=== PATIENT | female | born 1990 | race African-American/Black ===

== ENCOUNTER → 2017-06-18 09:04 | Emergency (ER) | payer SELFPAY ==
[~2017-06-18 09:04] MED LIST: Metoclopramide IV* 5 MG/ML 2 ML VIAL IV ONE; Morphine INJ* 2 MG/ML 1 ML CARPUJECT IV ONE; Morphine VIAL* 4 MG/ML VIAL (1 ml vial) IV ONE; Ondansetron INJ* 2 MG/ML VIAL IV ONE; Ondansetron INJ* 2 MG/ML VIAL ONE; Ondansetron ODT TAB* 4 MG PO ONE; oxyCODONE/Acetamin 5/325 MG* TAB PO ONE
[2017-06-18] MEDS: NS 0.9% 1000 ML* 2,000 ML IV ONE (10:03)
[2017-06-18 10:05] LABS: Hematocrit 43 % (35-47); Hemoglobin 14.3 g/dl (12.0-16.0); Mean Corpuscular HGB Conc 33 g/dl (31-36); Mean Corpuscular Hemoglobin 27 pg (27-31); Mean Corpuscular Volume 81 fL (80-97); Mean Platelet Volume 10.2 um3 (7.4-10.4); Platelet Count 270 10^3/ul (150-450); Red Blood Count 5.35 10^6/ul (4.0-5.4); Red Cell Distribution Width 13 % (10.5-15); White Blood Count 6.3 10^3/ul (3.5-10.8)
[2017-06-18 10:08] LABS: INR 0.94 (0.77-1.02)
[2017-06-18 10:16] LABS: EGFR Non-African American 94.2 (>60)
[2017-06-18 10:38] LABS: ABS Basophils 0 10^3/ul (0-0.2); ABS Eosinophils 0.1 10^3/ul (0-0.6); ABS Lymphocytes 1.5 10^3/ul (1.0-4.8); ABS Monocytes 0.5 10^3/ul (0-0.8); ABS Neutrophils 4.2 10^3/ul (1.5-7.7); ABS Nucleated RBC 0 10^3/ul; Eosinophil % 1.7 % (0-6); Lymphocyte % 23.4 % (25-47); Nucleated Red Blood Cells % 0.1
[2017-06-18 11:39] VITALS: BP 138/93
[2017-06-18 12:13] LABS: Urine Appearance Clear; Urine Blood 3+ (Negative); Urine Color Yellow; Urine Ketones Negative (Negative); Urine Protein Negative (Negative); Urine Urobilinogen Negative (Negative)
--- NOTE | 2017-06-18 12:48 | ED ---
Sarah Lucas Emily, scribed for Chari Adame MD on 06/18/17 at 1020 . Abdominal Pain/Female - HPI Summary HPI Summary: This patient is a 26 year old F presenting to [facility] with a chief complaint of nausea and vomiting that began at 2300 yesterday. Pt reports eating pizza that had been sitting out for a while at about 2100 yesterday. The patient rates the pain 8/10 in severity. Symptoms aggravated by nothing. Patient reports chills and epigastric abd pain. Patient denies diarrhea. Symptoms aggravated by nothing. Pt reports taking garlic oil pills, advil liquid gels, and castor oil with no reduction in abd pain or vomiting. - History of Current Complaint Chief Complaint: EDNauseaVomitDiarrh Stated Complaint: N/V Time Seen by Provider: 06/18/17 10:10 Hx Obtained From: Patient Onset/Duration: Sudden Onset, Lasting Hours, Still Present Timing: Constant Severity Initially: Mild Severity Currently: Mild Pain Intensity: 8 Pain Scale Used: 0-10 Numeric Location: Epigastric Aggravating Factor(s): Nothing Alleviating Factor(s): Nothing Associated Signs and Symptoms: Positive: Nausea, Vomiting. Negative: Diarrhea Allergies/Adverse Reactions: Allergies Allergy/AdvReac Type Severity Reaction Status Date / Time No Known Allergies Allergy Verified 06/18/17 09:13 Home Medications: Home Medications Ibuprofen [Advil Liqui-Gels] 200 - 400 mg PO Q6H PRN 06/18/17 [History Confirmed 06/18/17] PMH/Surg Hx/FS Hx/Imm Hx Previously Healthy: Yes Opthamlomology History: Denies: Hx Legally Blind EENT History: Denies: Hx Deafness Infectious Disease History: No Infectious Disease History: Denies: Traveled Outside the [place] in Last 30 Days - Family History Known Family History: Negative: Cardiac Disease, Diabetes - Social History Occupation: Employed Full-time Lives: Alone Alcohol Use: None Substance Use Type: Reports: None Smoking Status (MU): Current Some Day Smoker Review of Systems Positive: Chills Positive: Abdominal Pain, Vomiting, Nausea. Negative: Diarrhea All Other Systems Reviewed And Are Negative: Yes Physical Exam - Summary Physical Exam Summary: Appearance: Well-appearing, Well-nourished. Pt is retching actively at bedside with small amounts of yellow-green vomitus. Skin: Warm Eyes: Normal ENT: Normal Neck: Supple, nontender Respiratory: Clear to auscultation Cardiovascular: Regular rate, regular rhythm. Normal S1, S2. Abdomen: Soft, Tender to palpitation. Upper abd tenderness, moderate. Musculoskeletal: Normal, Strength/ROM Intact Neurological: Normal, A&Ox3 Psychiatric: Normal General: No acute distress Triage Information Reviewed: Yes Vital Signs On Initial Exam: Initial Vitals Temp Pulse Resp BP Pulse Ox 96.5 F 98 18 154/100 97 06/18/17 09:09 06/18/17 09:09 06/18/17 09:09 06/18/17 09:09 06/18/17 09:09 Vital Signs Reviewed: Yes Diagnostics - Vital Signs Vital Signs Temp Pulse Resp BP Pulse Ox 06/18/17 10:05 99 139/94 99 06/18/17 10:00 74 96 06/18/17 09:28 90 100 06/18/17 09:09 96.5 F 98 18 154/100 97 - Laboratory Lab Results: Lab Results 06/18/17 06/18/17 06/18/17 Range/Units 09:50 09:50 09:50 WBC 6.3 (3.5-10.8) 10^3/ul RBC 5.35 (4.0-5.4) 10^6/ul Hgb 14.3 (12.0-16.0) g/dl Hct 43 (35-47) % MCV 81 (80-97) fL MCH 27 (27-31) pg MCHC 33 (31-36) g/dl RDW 13 (10.5-15) % Plt Count 270 (150-450) 10^3/ul MPV 10.2 (7.4-10.4) um3 Neut % (Auto) Pending Lymph % (Auto) Pending Phelps % (Auto) Pending Eos % (Auto) Pending Baso % (Auto) Pending Absolute Neuts (auto) Pending Absolute Lymphs (auto) Pending Absolute Monos (auto) Pending Absolute Eos (auto) Pending Absolute Basos (auto) Pending Absolute Nucleated RBC Pending Nucleated RBC % Pending INR (Anticoag Therapy) 0.94 (0.77-1.02) APTT 31.1 (26.0-36.3) seconds Sodium 135 L (139-145) mmol/L Potassium 4.2 (3.5-5.0) mmol/L Chloride 102 (101-111) mmol/L Carbon Dioxide 25 (22-32) mmol/L Anion Gap 8 (2-11) mmol/L BUN 9 (6-24) mg/dL Creatinine 0.75 (0.51-0.95) mg/dL Est GFR ( Amer) 121.1 (>60) Est GFR (Non-Af Amer) 94.2 (>60) BUN/Creatinine Ratio 12.0 (8-20) Glucose 172 H (70-100) mg/dL Calcium 9.4 (8.6-10.3) mg/dL Total Bilirubin 0.50 (0.2-1.0) mg/dL AST 32 (13-39) U/L ALT 47 (7-52) U/L Alkaline Phosphatase 68 (34-104) U/L C-Reactive Protein 10.39 H (< 5.00) mg/L Total Protein 7.9 (6.4-8.9) g/dL Albumin 4.4 (3.2-5.2) g/dL Globulin 3.5 (2-4) g/dL Albumin/Globulin Ratio 1.3 (1-3) Beta HCG, Quant Pending Acetaminophen Pending Result Diagrams: 06/18/17 09:50 06/18/17 09:50 Lab Statement: Any lab studies that have been ordered have been reviewed, and results considered in the medical decision making process. Re-Evaluation - Re-Evaluation First Eval Re-Evaluation Time: 12:33 Change: Unchanged Comment: Discussed results and plan of care with pt Abdominal Pain Fem Course/Dx - Course Course Of Treatment: LABS unremarkble, abd pain and nausea improved with IVF, Zofran and Reglan - Diagnoses Provider Diagnoses: Food aversion, Food contamination Discharge - Sign-Out/Discharge Documenting (check all that apply): Discharge - Discharge Plan Condition: Stable Disposition: HOME Prescriptions: Ondansetron TAB* [Zofran 4 MG Tab*] 4 mg PO Q6H PRN 5 Days #20 tab PRN Reason: Nausea oxyCODONE/Acetamin 5/325 MG* [Percocet 5/325 TAB*] 1 tab PO Q6H PRN 1 Days #4 tab MDD 4 PRN Reason: Pain Patient Education Materials: Food Poisoning (ED), Gastroenteritis (ED) Referrals: No Primary Care Phys,NOPCP [Primary Care Provider] - - Billing Disposition and Condition Condition: STABLE Disposition: HOME The documentation as recorded by the Sarah almanzar Emily accurately reflects the service I personally performed and the decisions made by Deep davis Euni, MD.
== END | disposition home or self-care (01) ==
LOC: ED 09:04
DX: A05.9 Bacterial foodborne intoxication, unspecified (principal); F17.200 Nicotine dependence, unspecified, uncomplicated
CPT/HCPCS: 36415; 80053; 80329; 81003; 81015; 83605; 84702; 85025; 85610; 85730; 86140; 96360; 96374; 99283; A9270-GY; G0480; J2270; J2405; J2765

== ENCOUNTER 2017-06-20 17:00 | Observation (INO) | payer OTHER ==
[2017-06-20 19:21] LABS: ABS Basophils 0.1 10^3/ul (0-0.2); ABS Eosinophils 0.2 10^3/ul (0-0.6); ABS Lymphocytes 2.3 10^3/ul (1.0-4.8); ABS Monocytes 1.2 10^3/ul (0-0.8); ABS Neutrophils 8.2 10^3/ul (1.5-7.7); ABS Nucleated RBC 0 10^3/ul; Hematocrit 43 % (35-47); Hemoglobin 14.3 g/dl (12.0-16.0); Lymphocyte % 19.2 % (25-47); Mean Corpuscular HGB Conc 34 g/dl (31-36); Mean Corpuscular Hemoglobin 27 pg (27-31); Mean Corpuscular Volume 81 fL (80-97); Mean Platelet Volume 9.3 um3 (7.4-10.4); Nucleated Red Blood Cells % 0; Platelet Count 316 10^3/ul (150-450); Red Blood Count 5.29 10^6/ul (4.0-5.4); Red Cell Distribution Width 13 % (10.5-15)
[2017-06-20 19:37] LABS: EGFR Non-African American 78.3 (>60)
[2017-06-20 20:39] LABS: Urine Appearance Clear; Urine Blood 1+ (Negative); Urine Color Yellow; Urine Ketones Negative (Negative); Urine Protein Negative (Negative); Urine Specific Gravity 1.014 (1.010-1.030); Urine Urobilinogen Negative (Negative)
[2017-06-20] MEDS ORDERED: NS 0.9% 1000 ML* 1,000 ML IV ONE (21:36)
--- NOTE | 2017-06-20 22:07 | RAD ---
INDICATION: Right upper quadrant pain. COMPARISON: There are no prior studies available for comparison. TECHNIQUE: Multiple real-time images of the right upper quadrant were obtained. FINDINGS: There are multiple gallstones present. The gallbladder wall is diffusely thickened measuring up to 0.6 cm in thickness. There was a positive sonographic Oliveira sign present. No intra or extrahepatic ductal distention is present. The common bile duct measured 0.4 cm in diameter. The liver is mildly enlarged, heterogeneous and increased in echogenicity most consistent with fatty infiltration. In addition there is a focal hypoechoic area measuring 3.6 x 3.4 x 7.7 cm and the left hepatic lobe possibly representing a focal area sparing although a mass cannot be excluded. The pancreas is partially obscured by overlying bowel gas. The right kidney is normal in size without evidence for hydronephrosis. IMPRESSION: 1. CHOLELITHIASIS, IN ADDITION, THERE IS GALLBLADDER WALL THICKENING AND A POSITIVE SONOGRAPHIC OLIVEIRA SIGN SUGGESTIVE OF ACUTE CHOLECYSTITIS. 2. RELATIVELY LARGE HYPOECHOIC AREA IN THE LEFT HEPATIC LOBE POSSIBLY REPRESENTING FOCAL SPARING ALTHOUGH A MASS CANNOT BE EXCLUDED. RECOMMEND AN OUTPATIENT MRI OF THE LIVER WITHOUT AND WITH CONTRAST FOR FURTHER EVALUATION. 3. MILD HEPATOMEGALY AND HEPATIC STEATOSIS.
--- NOTE | 2017-06-20 22:19 | ED ---
GI/ HPI - HPI Summary HPI Summary: 26-year-old female presents with epigastric pain for the past 4 days. She states she was seen here 2 days ago was diagnosed with food poisoning. She states she has been taking nausea medication and has been able to tolerate crackers. She states the past 2 days she has been developing epigastric pain that has gotten worse. She states that the pain of radiates to her chest. She denies any abnormal vaginal discharge. she denies any pain with urination. She admits to diarrhea that started today. She denies any blood in her stool. She denies any recent antibiotic usage. She has never had this pain before. She denies any previous belly surgeries. She states she tolerate crackers today without pain. - History of Current Complaint Chief Complaint: EDAbdPain Time Seen by Provider: 06/20/17 20:15 Stated Complaint: ABD PAIN Pain Intensity: 8 - Allergy/Home Medications Allergies/Adverse Reactions: Allergies Allergy/AdvReac Type Severity Reaction Status Date / Time No Known Allergies Allergy Verified 06/18/17 09:13 Home Medications: Home Medications Garlic [Garlic Oil 1000] 2 mg PO DAILY PRN 06/20/17 [History Confirmed 06/20/17] L.acidoph,Paracasei, B.lactis [Probiotic] 1 each PO WEEKLY 06/20/17 [History Confirmed 06/20/17] PMH/Surg Hx/FS Hx/Imm Hx Endocrine/Hematology History: Denies: Hx Anticoagulant Therapy Cardiovascular History: Denies: Hx Hypertension Sensory History: Denies: Hx Legally Blind, Hx Deafness Opthamlomology History: Denies: Hx Legally Blind Infectious Disease History: No Infectious Disease History: Denies: Traveled Outside the [place] in Last 30 Days - Family History Known Family History: Negative: Cardiac Disease, Diabetes - Social History Alcohol Use: None Substance Use Type: Reports: None Smoking Status (MU): Current Some Day Smoker Review of Systems Negative: Fever Negative: Shortness Of Breath, Cough Positive: Abdominal Pain. Negative: Vomiting, Diarrhea, Nausea All Other Systems Reviewed And Are Negative: Yes Physical Exam Triage Information Reviewed: Yes Vital Signs On Initial Exam: Initial Vitals Temp Pulse Resp BP Pulse Ox 98.3 F 111 20 153/97 98 06/20/17 17:04 06/20/17 17:04 06/20/17 17:04 06/20/17 17:04 06/20/17 17:04 Vital Signs Reviewed: Yes Appearance: Positive: Well-Appearing Skin: Positive: Warm, Dry Head/Face: Positive: Normal Head/Face Inspection Eyes: Positive: Normal, Conjunctiva Clear Respiratory/Lung Sounds: Positive: Clear to Auscultation, Breath Sounds Present Cardiovascular: Positive: Normal, RRR Abdomen Description: Positive: Soft, Other: - tenderness in RUQ, pos augustine sign Bowel Sounds: Positive: Present Musculoskeletal: Positive: Normal Neurological: Positive: Normal Psychiatric: Positive: Normal Diagnostics - Vital Signs Vital Signs Temp Pulse Resp BP Pulse Ox 06/20/17 22:00 90 112/71 99 06/20/17 21:30 89 113/84 99 06/20/17 21:00 97 112/68 97 06/20/17 20:30 102 124/56 97 06/20/17 20:26 67 89 06/20/17 20:24 131/63 06/20/17 19:45 99.7 F 97 16 134/82 100 06/20/17 18:09 97.9 F 109 18 147/98 100 06/20/17 17:04 98.3 F 111 20 153/97 98 - Laboratory Lab Results: Lab Results 06/20/17 06/20/17 06/20/17 Range/Units 19:10 19:10 20:21 WBC 12.0 H (3.5-10.8) 10^3/ul RBC 5.29 (4.0-5.4) 10^6/ul Hgb 14.3 (12.0-16.0) g/dl Hct 43 (35-47) % MCV 81 (80-97) fL MCH 27 (27-31) pg MCHC 34 (31-36) g/dl RDW 13 (10.5-15) % Plt Count 316 (150-450) 10^3/ul MPV 9.3 (7.4-10.4) um3 Neut % (Auto) 68.4 (38-83) % Lymph % (Auto) 19.2 L (25-47) % [place] % (Auto) 9.6 H (0-7) % Eos % (Auto) 2.0 (0-6) % Baso % (Auto) 0.8 (0-2) % Absolute Neuts (auto) 8.2 H (1.5-7.7) 10^3/ul Absolute Lymphs (auto) 2.3 (1.0-4.8) 10^3/ul Absolute Monos (auto) 1.2 H (0-0.8) 10^3/ul Absolute Eos (auto) 0.2 (0-0.6) 10^3/ul Absolute Basos (auto) 0.1 (0-0.2) 10^3/ul Absolute Nucleated RBC 0 10^3/ul Nucleated RBC % 0 Sodium 138 L (139-145) mmol/L Potassium 3.9 (3.5-5.0) mmol/L Chloride 100 L (101-111) mmol/L Carbon Dioxide 30 (22-32) mmol/L Anion Gap 8 (2-11) mmol/L BUN 7 (6-24) mg/dL Creatinine 0.88 (0.51-0.95) mg/dL Est GFR ( Amer) 100.7 (>60) Est GFR (Non-Af Amer) 78.3 (>60) BUN/Creatinine Ratio 8.0 (8-20) Glucose 97 (70-100) mg/dL Calcium 9.6 (8.6-10.3) mg/dL Total Bilirubin 0.70 (0.2-1.0) mg/dL AST 17 (13-39) U/L ALT 27 (7-52) U/L Alkaline Phosphatase 75 (34-104) U/L C-Reactive Protein 101.30 H (< 5.00) mg/L Total Protein 8.2 (6.4-8.9) g/dL Albumin 4.3 (3.2-5.2) g/dL Globulin 3.9 (2-4) g/dL Albumin/Globulin Ratio 1.1 (1-3) Lipase 20 (11.0-82.0) U/L Beta HCG, Quant < 0.60 mIU/mL Urine Color Yellow Urine Appearance Clear Urine pH 6.0 (5-9) Ur Specific Capulin 1.014 (1.010-1.030) Urine Protein Negative (Negative) Urine Ketones Negative (Negative) Urine Blood 1+ A (Negative) Urine Nitrate Negative (Negative) Urine Bilirubin Negative (Negative) Urine Urobilinogen Negative (Negative) Ur Leukocyte Esterase Negative (Negative) Urine WBC (Auto) 1+(6-10/hpf) A (Absent) Urine RBC (Auto) Trace(0-2/hpf) (Absent) Ur Squamous Epith Cells Present A (Absent) Urine Bacteria Absent (Absent) Urine Glucose Negative (Negative) Result Diagrams: 06/20/17 19:10 06/20/17 19:10 Lab Statement: Any lab studies that have been ordered have been reviewed, and results considered in the medical decision making process. - Ultrasound No standard instances Ultrasound Interpretation: Positive (See Comments) - IMPRESSION: 1. CHOLELITHIASIS, IN ADDITION, THERE IS GALLBLADDER WALL THICKENING AND A POSITIVE SONOGRAPHIC AUGUSTINE SIGN SUGGESTIVE OF ACUTE CHOLECYSTITIS. 2. RELATIVELY LARGE HYPOECHOIC AREA IN THE LEFT HEPATIC LOBE POSSIBLY REPRESENTING FOCAL SPARING ALTHOUGH A MASS CANNOT BE EXCLUDED. RECOMMEND AN OUTPATIENT MRI OF THE LIVER WITHOUT AND WITH CONTRAST FOR FURTHER EVALUATION. 3. MILD HEPATOMEGALY AND HEPATIC STEATOSIS. Ultrasound Interpretation Completed By: Tremaine RICH Course/Dx - Course Course Of Treatment: 26-year-old female presents with epigastric pain for the past 4 days. She states she was seen here 2 days ago was diagnosed with food poisoning. She states she has been taking nausea medication and has been able to tolerate crackers. She states the past 2 days she has been developing epigastric pain that has gotten worse. She states that the pain of radiates to her chest. She denies any abnormal vaginal discharge. she denies any pain with urination. She admits to diarrhea that started today. She denies any blood in her stool. She denies any recent antibiotic usage. She has never had this pain before. She denies any previous belly surgeries. She states she tolerate crackers today without pain. on exam tenderness RUQ. pos augustine. u/s shows cholelithasis with gallbladder thickening. labs wbc elevated and crp elevated. discussed with dr sanchez who will admit. - Diagnoses Differential Diagnoses - Female: Gall Bladder Disease, Gastroenteritis (Viral), Gastroenteritis (Bacterial), Urinary Tract Infection Provider Diagnoses: Cholecystitis Discharge - Sign-Out/Discharge Documenting (check all that apply): Discharge - Discharge Plan Condition: Good Disposition: ADMITTED TO [facility] Referrals: No Primary Care Phys,NOPCP [Primary Care Provider] - - Billing Disposition and Condition Condition: GOOD Disposition: [facility] [place]
[2017-06-20] MEDS ORDERED: Ondansetron INJ* 2 MG/ML VIAL IV PRN (22:29)
[2017-06-20] MEDS ORDERED: Acetaminophen TAB* 325 MG PO PRN (22:29)
[2017-06-20] MEDS ORDERED: Morphine INJ* 2 MG/ML 1 ML CARPUJECT IV PRN (22:29)
[2017-06-20] MEDS ORDERED: Piperacillin/Tazobac ADVAN(*) 3.375 GM in NS 0.9% 100 ML* 100 ML IVPB ONE (22:32)
[2017-06-20] MEDS ORDERED: Zosyn per Pharmacy* NOTE FOLLOW UP SCH (23:00)
[2017-06-20] MEDS: NS 0.9% 1000 ML* 1,000 ML IV SCH (23:45)
--- NOTE | 2017-06-21 01:41 | HP ---
CC: [facility] * HISTORY AND PHYSICAL: DATE OF ADMISSION: 06/20/17 CHIEF COMPLAINT: Epigastric and right upper quadrant abdominal pain with cholelithiasis. HISTORY OF PRESENT ILLNESS: Ms. Denae Young is a very pleasant 26-year- old [employer] graduate who presented to the emergency room with complaints of epigastric and right upper quadrant abdominal pain. She states this started on Tuesday. She was seen here in the emergency room on that day and was diagnosed with food poisoning and improved over the next 12 hours. However, the rest of the weekend her pain became worse. She had some nausea without fevers, shakes or chills and when her pain started radiating to the chest, she presented to the emergency room this evening. She has been able to tolerate crackers and dl mick. She has had no lower abdominal discomfort. There has been no diarrhea or change in her bowel habits. When in the emergency room, she was noted to be afebrile. Laboratory workup included white blood cell count of 12,000. C-reactive protein was 101. Beta HCG was negative. Liver transaminases, total bilirubin, alkaline phosphatase were normal. Ultrasound of her gallbladder was performed. This did show cholelithiasis with gallbladder wall thickening up to 0.6 cm in thickness and a sonographic Oliveira sign with all the findings suggestive of acute cholecystitis. Surgical consultation was obtained. PAST MEDICAL HISTORY: Unremarkable. PAST SURGICAL HISTORY: None. ALLERGIES: She has no known drug allergies. 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 She drinks alcohol on a rare social basis. She will occasionally smoke cigarettes, but is not a regular smoker. REVIEW OF SYSTEMS: Otherwise unremarkable. PHYSICAL EXAMINATION GENERAL: She is an overweight female who is very pleasant, awake and alert, appears to be in no apparent distress. VITAL SIGNS: Temperature 98.6, pulse 89, blood pressure 128/96. HEENT: Sclerae anicteric. Oral mucosa is slightly dry. LUNGS: Clear to auscultation with normal respiratory effort. HEART: Regular rate and rhythm without murmurs, rubs or gallops. ABDOMEN: Soft and obese. There are no prior surgical incisions or hernias. She has tenderness in the epigastric and right upper quadrant with some voluntary guarding. PSYCHIATRIC: She is awake, alert and oriented x3. She has normal judgment and insight. IMPRESSION: Acute calculus cholecystitis. I discussed the results of the ultrasound in her clinical scenario and I recommended that she would be admitted tonight to start IV fluids as well as IV antibiotics in treatment of her acute calculus cholecystitis. I will further recommend a laparoscopic cholecystectomy which we will schedule for tomorrow, if the operating room schedule permits. We discussed management with IV antibiotics in an attempt to postpone cholecystectomy; however, she does not want to proceed in this direction and would like to proceed with surgery. For now, she will be admitted to the regular floor. We will start her on IV Zosyn along with normal saline, keep her n.p.o. and tentatively plan surgery tomorrow. I discussed all of this with the patient and answered her questions and she understands the treatment plan. [id number]/[facility] #: [id number] VINOD
[2017-06-21] MEDS: Piperacillin/Tazobactam 13.5 GM IV 24 hour continuous infusion IVPB SCH ×2 (02:15)
[2017-06-21] MEDS ORDERED: Morphine VIAL* 4 MG/ML VIAL (1 ml vial) IV PRN (06:13)
[2017-06-21] MEDS: NS 0.9% 1000 ML* 1,000 ML IV SCH ×2 (08:00→23:47)
[2017-06-21] MEDS ORDERED: Dexamethasone IV* 4 MG/ML 1 ML (4 MG) ONE (15:56)
[2017-06-21] MEDS ORDERED: fentaNYL* 50 MCG/ML 2 ML VIAL (100 MCG VIAL) ONE ×3 (15:56→17:55)
[2017-06-21] MEDS ORDERED: Ondansetron INJ* 2 MG/ML VIAL ONE (15:56)
[2017-06-21] MEDS ORDERED: Propofol* 10 MG/ML 20 ML BTL IV PUSH ONE (15:56)
[2017-06-21] MEDS ORDERED: Lidocaine 2% PF * 5 ML VIAL ONE (15:57)
[2017-06-21] MEDS ORDERED: Atracurium* 10 MG/ML 10 ML VIAL ONE (15:57)
[2017-06-21] MEDS ORDERED: Succinylcholine* 20 MG/ML 10 ML VIAL ONE (16:17)
[2017-06-21] MEDS ORDERED: HYDROmorphone INJ* 1 MG/ML CARPUJECT SYRINGE IV PRN (16:40)
[2017-06-21] MEDS ORDERED: Ketorolac INJ* 30 MG/ML 1 ML VIAL IV PRN (16:40)
[2017-06-21] MEDS ORDERED: DiMENhydriNATE IV* 50 MG/ML VIAL IV PUSH PRN (16:40)
[2017-06-21] MEDS ORDERED: Naloxone* 0.4 MG/ML 1 ML VIAL IV PRN (16:40)
[2017-06-21] MEDS ORDERED: Labetalol IV* 5 MG/ML 20 ML VIAL ONE (16:47)
[2017-06-21] MEDS ORDERED: oxyCODONE/Acetamin 5/325 MG* TAB PO PRN (17:45)
[2017-06-21] MEDS ORDERED: Ibuprofen TAB* 600 MG PO PRN (17:47)
[2017-06-21] MEDS ORDERED: HYDROmorphone INJ* 2 MG/ML CARPUJECT SYRINGE ONE (17:55)
[2017-06-21] MEDS: fentaNYL* 50 MCG/ML 2 ML VIAL (100 MCG VIAL) IV PRN ×2 (17:57→18:06)
[2017-06-21] MEDS ORDERED: Ketorolac INJ* 30 MG/ML 1 ML VIAL ONE (18:49)
--- NOTE | 2017-06-22 02:01 | OP ---
DATE OF OPERATION: 06/21/17 - ROOM #331 DATE OF : 89 SURGEON: Alvaro Skelton MD. CRYPTOGRAPHER: Kyleigh Pascal NP ANESTHESIOLOGIST: Dr. Magana ANESTHESIA: General endotracheal. PRE-OP DIAGNOSIS: Acute cholelithiasis. POST-OP DIAGNOSIS: Acute cholelithiasis. OPERATIVE PROCEDURE: Laparoscopic cholecystectomy. ESTIMATED BLOOD LOSS: Less than 50 mL. IV FLUIDS: Crystalloid. SPECIMEN: Gallbladder. DRAINS: None. COMPLICATIONS: None. COUNTS: Instrument, needle, and sponge counts were correct. DESCRIPTION OF PROCEDURE: The patient was brought to the operating room and placed on the table supine. Sequential compression devices were placed on both lower extremities and general anesthesia was administered. The abdomen was prepped and draped in the usual sterile fashion. Time-out was performed. Local anesthetic was infiltrated into the skin and soft tissue prior to making each incision. Entry into the abdomen was through a supraumbilical right upper quadrant incision accommodating a 5-mm optical trocar and after access the peritoneal cavity, carbon dioxide was insufflated to pressure of 15 mmHg. Under direct visualization, a 12-mm trocar was placed in the subxiphoid position and two 5 mm trocars were placed in the right upper quadrant. The gallbladder was acutely inflamed, distended with findings consistent with acute cholecystitis. The liver was large. In order to grasp the gallbladder, we decompressed it first. This was accomplished by entering the gallbladder with cautery and then using the endoscopic suction to aspirate the gallbladder and then the cholecystotomy site was grasped with the lateral grasper and this was used to retract the fundus cephalad. Subsequently, there were noted to be numerous adhesions of omentum to the infundibulum of the gallbladder and to the liver. These were taken down using a combination of blunt dissection and cautery. After the wall of the gallbladder was identified, the peritoneum investing the infundibulum was incised with cautery and the area of the triangle of Calot was identified and then blunt dissection was used to dissect out the cystic duct and cystic artery. The artery was avulsed during the dissection but did not appear to bleed, but this was subsequently clipped. The cystic duct was clipped and divided and then further dissection revealed what was thought to possibly be a posterior branch of the cystic artery, which was cut, clipped and divided as well. Cautery was used to dissect the gallbladder from the attachments to the liver staying in the avascular plane and once the gallbladder was free, this was placed into endoscopic retrieval bag. This was retrieved through the subxiphoid port site. A thorough lavage of the right upper quadrant was performed and hemostasis was assured and the clips were noted to be intact and then the ports were removed under direct visualization and carbon dioxide was released. The subxiphoid site was closed with 0 Polysorb in a simple fashion to approximate the fascia and then the skin incisions were closed with 4-0 Monocryl in subcuticular fashion. Steri-Strips were applied. The patient was extubated uneventfully and transferred to recovery room stable. [id number]/[facility] #: [id number] VINOD
[2017-06-22] MEDS: Piperacillin/Tazobactam 13.5 GM IV 24 hour continuous infusion IVPB SCH ×2 (02:21)
[2017-06-22] MEDS: NS 0.9% 1000 ML* 1,000 ML IV SCH (08:21)
--- NOTE | 2017-06-22 09:22 | PN ---
Progress Note - Progress Note Date of Service: 06/22/17 Note: Subjective: Ms. Young is POD#1 of a cholecystectomy and is doing quite well this morning. She reports minimal abdominal pain (2/10) that is well controlled with tylenol. Upon interviewing her, she was eating breakfast and denies any nausea or vomiting. She has been ambulating frequently and reports that this has helped to relieve some abdominal discomfort. She had a BM this morning. Urinating without problem. She denies fatigue, fevers, chills, CP, palpitations , chest pressure or tightness, SOB, coughing, wheezing. Current Medications Acetaminophen (Tylenol Tab*) 650 mg PO Q6H PRN PRN Reason: FEVER Sodium Chloride (Ns 0.9% 1000 Ml*) 1,000 mls @ 125 mls/hr IV PER RATE [facility] Last Admin: 06/21/17 23:47 Dose: 125 mls/hr Piperacillin Sod/Tazobactam (Sod 13.5 gm/ Sodium Chloride) 500 mls @ 20.833 mls /hr IVPB Q24H [facility] Last Admin: 06/22/17 02:21 Dose: 20.833 mls/hr Ibuprofen (Motrin Tab*) 600 mg PO Q6H PRN PRN Reason: PAIN Morphine Sulfate (Morphine Vial*) 2 mg IV Q2H PRN PRN Reason: PAIN Ondansetron HCl (Zofran Inj*) 4 mg IV Q6H PRN PRN Reason: NAUSEA Oxycodone/Acetaminophen (Percocet 5/325 Tab*) 1 tab PO Q4H PRN PRN Reason: PAIN Pharmacy Consult (Zosyn Per Pharmacy*) 1 note FOLLOW UP .ZOSYN PER PHARMACY [facility] Objective: Vital Signs - 8 hr 06/22/17 06/22/17 06/22/17 03:12 06:17 07:13 Temperature 97.9 F 98.0 F 99.0 F Pulse Rate 69 79 Respiratory 16 16 Rate Blood Pressure 140/80 142/82 (mmHg) O2 Sat by Pulse 99 95 Oximetry VS noted; last evening BP was 150s/100s but has since come down. General: Ms. Young is a very pleasant 26 yo female who was sitting up on the side of her bed eating breakfast. CV: RRR w/o MRG. Resp: CTAB w/o RRW. GI: Abdomen is soft, non-distended and minimally tender to palpation. BS active throughout. Incision sites with steri-strips are clean, dry, and intact without evidence of infection. Extremities: w/o edema Assessment & Plan: Ms. Young is POD#1 from a cholecystectomy. She is doing well and will be d/c today with post-op instructions. Temp 99, but has been on Zosyn throughout hospital stay; will discontinue abx therapy at this time. Prescription for pain medication sent to pharmacy. FU in office to be scheduled.
[2017-06-22 12:00] VITALS: BP 130/81
--- NOTE | 2017-06-22 15:12 | DS ---
DISCHARGE SUMMARY: DATE OF ADMISSION: 06/20/17 DATE OF DISCHARGE: 06/22/17 ATTENDING SURGEON: Alvaro Skelton MD * (DICTATED BY DALLIN MCNULTY NP) HOSPITAL COURSE: The patient is a 26-year-old female who presented to the emergency department on 06/20/17 with worsening epigastric and right upper quadrant abdominal pain; she had been to the emergency room prior to that and initially was diagnosed with food poisoning; her abdominal pain worsened and it was associated with nausea. White blood cell count was elevated at 12,000. CRP was also elevated and her liver function tests are within normal limits. A gallbladder ultrasound revealed cholelithiasis with gallbladder wall thickening and a positive Oliveira sign consistent with the diagnosis of acute cholecystitis. The patient was taken to the operating room on Tuesday, and underwent laparoscopic cholecystectomy by Dr. Skelton. She had an uneventful postoperative course and has required minimal pain medication and was able to meet the criteria for discharge; she is eating a low fat diet. She is ambulating in the halls. She is voiding large amounts and has had a formed bowel movement. She was seen this morning by myself and plans were made for discharge today. PHYSICAL EXAMINATION: General: Well appearing, in no acute distress. Vital signs are stable. Temperature maximum 99. O2 saturation on room air 95%. Lungs: Breath sounds bilaterally clear and equal. Heart: Regular rate and rhythm. No murmurs or rubs appreciated. Abdomen: Active bowel sounds. Laparoscopic port sites are intact with Steri-Strips, which are clean and dry, there is no surrounding erythema. Her abdomen is soft with minimal incisional tenderness. Extremities are warm. Calves are nontender and there is no edema. IMPRESSION: Status post laparoscopic cholecystectomy, doing extremely well. PLAN: Discharge home today; instructions were reviewed with the patient; she will call our office to set up a followup visit within one week. She will have a prescription for Augmentin 875 mg p.o. q. 12 hours for 5 days postoperatively , she will also have a prescription for oxycodone, acetaminophen 5/325 mg to be used p.r.n. pain and she may also use [id number] ibuprofen and Tylenol for milder pain. DALLIN MCNULTY, CONTENT PRODUCTION SPECIALIST [id number] #: [id number] VINOD
== END 2017-06-22 12:00 | disposition home or self-care (01) ==
LOC: ED 17:00 → SSU 22:29
PROVIDERS: ADMIT Surgery; ATTEND Surgery
PROC: 0FT44ZZ Resection of Gallbladder, Percutaneous Endoscopic Approach (ICD-10-PCS; principal; 2017-06-20)
DX: K80.80 Other cholelithiasis without obstruction (principal); R10.13 Epigastric pain; Z72.0 Tobacco use
CPT/HCPCS: 36415; 76705; 80053; 81003; 81015; 83690; 84702; 85025; 86140; 87086; 88304; 96361; 96365; 99284; G0378; J0330; J1100; J1170; J1885; J2270; J2405; J2543; J2704; J3010